=== PATIENT | female | born 1965 | race Caucasian/White ===

== ENCOUNTER → 2017-04-18 | Outpatient (CLI) | payer MEDICARE, BC ==
--- NOTE | 2017-04-18 11:55 | KCIC ---
MR of the left shoulder Indication: Left shoulder pain when exercising, now severe with limited range of motion in last 3 days. Technique: Standard multiplanar sequences are obtained. Findings: Acromioclavicular joint:Intact. Rotator cuff: Deep linear undersurface tear of the anterior supraspinatus tendon measures 15 mm AP diameter. This extends to about 80 percent of the tendon depth at the anterior supraspinatus footprint. No complete through and through bursal surface rupture or retraction. No evidence of subscapularis tendon tear. However, there is extensive intramuscular edema, as well as a complex fluid signal collection within the subscapularis muscle, with some hyperintense T1 signal, most compatible with a hematoma measuring at least 5 cm diameter. Glenohumeral cartilage: No acute defect or advanced DJD. Fluid: No significant joint effusion. Labrum: Tear of the superior labrum. Biceps tendon: Intact Bones: No lesion or acute fracture. Soft tissue: Generalized soft tissue edema at the anterior shoulder. Mild fluid/edema around the teres major muscle. Impression: 1. Small deep undersurface tear of the anterior supraspinatus tendon of the rotator cuff. 2. Intramuscular hematoma of the subscapularis muscle. This most likely is due to a partial intramuscular tear. Hemorrhagic intramuscular mass is difficult to exclude, particularly if there is not a suggestive history of trauma or coagulopathy, and consider MR follow-up to document that this resolves. 3. Superior labral tear. Electronically signed by: Derek Emery MD (04/18/2017 11:51 AM) [facility]
== END | disposition home or self-care (01) ==
LOC: KCIC MRI 08:53
PROVIDERS: ATTEND Physician Assistant Medical
DX: M75.102 Unspecified rotator cuff tear or rupture of left shoulder, not specified as traumatic (principal); M79.81 Nontraumatic hematoma of soft tissue
CPT/HCPCS: 73221

== ENCOUNTER → 2020-08-15 | Outpatient (CLI) | payer MEDICARE, OTHER ==
--- NOTE | 2020-08-16 09:26 | CARD ---
MR#: [id number] Date of Study: 08/15/2020 Ordering Physician: RONALD WEBBER, Referring Physician: RONALD WEBBER, Tech: Amanda Herrera [facility] APPROVED REPORT EXAM: Two-dimensional and M-mode echocardiogram with Doppler and color Doppler. INDICATION RISK FACTORS Hypertension Hyperlipidemia 2D DIMENSIONS RVDd3.4 (2.9-3.5cm)Left Atrium(2D)3.9 (1.6-4.0cm) IVSd1.2 (0.7-1.1cm)Aortic Root(2D)3.0 (2.0-3.7cm) LVDd4.1 (3.9-5.9cm)LVOT Diameter2.0 (1.8-2.4cm) PWd1.2 (0.7-1.1cm)LVDs2.8 (2.5-4.0cm) FS (%) 31.2 %SV44.8 ml LVEF(%)59.5 (>50%) Aortic Valve AoV Peak Sanjay.277.6cm/sAoV VTI63.4cm AO Peak GR.30.8mmHgLVOT Peak Sanjay.93.7cm/s AO Mean GR.15mmHgAVA (VMAX)1.09cm2 AI P 1/2 Hxuz050fg Mitral Valve MV E Rkearney06.6cm/sMV E Peak Gr.28mmHg MV DECEL [id number] A Yhhdoxfy61.8cm/s MV E Mean Gr.13mmHgE/A Ratio1.0 Pulmonary Valve PV Peak Wxugyqoc909.2cm/s Tricuspid Valve TR P. Flswamyt107dt/sTR Peak Gr.25mmHg Pulmonary Vein S1 Xktqdbfl09.6cm/sD2 Rmzjrshq54.3cm/s PVa sfuhwqwq271jevi LEFT VENTRICLE The left ventricle is normal size. There is mild concentric left ventricular hypertrophy. The left ve ntricular systolic function is normal and the ejection fraction is within normal range. Estimated eje ction fraction 60-65%. There is normal LV segmental wall motion. Tissue Doppler imaging reveals mild left ventricular diastolic dysfunction. RIGHT VENTRICLE The right ventricle is normal size. There is normal right ventricular wall thickness. The right ventr icular systolic function is normal. ATRIA The left atrium size is normal. The right atrium size is normal. The interatrial septum is intact wit h no evidence for an atrial septal defect or patent foramen ovale as noted on 2-D or Doppler imaging. AORTIC VALVE There is a mechanical aortic valve prosthesis.The prosthetic aortic valve appears well seated with a Peak pg 28 mmHg with a calculated mean pg 13 mmHg. Mild aortic insufficiency noted. MITRAL VALVE The mitral valve is normal in structure and function. There is no evidence of mitral valve prolapse. Doppler and Color-flow revealed mild mitral regurgitation. TRICUSPID VALVE The tricuspid valve is normal in structure and function. Doppler and Color Flow revealed mild tricusp id regurgitation. Estimated PAP 28 mmHg. There is no tricuspid valve stenosis. PULMONIC VALVE Doppler and Color Flow revealed no pulmonic valvular regurgitation. There is no pulmonic valvular faina nosis. GREAT VESSELS The aortic root is normal in size. The ascending aorta is normal in size. The IVC is normal in size a nd collapses >50% with inspiration. PERICARDIAL EFFUSION There is no evidence of significant pericardial effusion. Critical Notification Critical Value: No <Conclusion> The left ventricular systolic function is normal and the ejection fraction is within normal range. E stimated ejection fraction 60-65%. There is normal LV segmental wall motion. There is a mechanical aortic valve prosthesis.The prosthetic aortic valve appears well seated with a Peak pg 28 mmHg with a calculated mean pg 13 mmHg. Mild aortic insufficiency noted. Doppler and Color Flow revealed mild tricuspid regurgitation. Estimated PAP 28 mmHg. Signed by : Ronald Webber, Electronically Approved : 08/16/2020 09:26:21
== END ==
LOC: ECHO 14:51
PROVIDERS: ATTEND Internal Medicine Cardiovascular Disease
DX: I08.3 Combined rheumatic disorders of mitral, aortic and tricuspid valves (principal); Z95.2 Presence of prosthetic heart valve
CPT/HCPCS: 93306

== ENCOUNTER → 2021-10-30 | Outpatient (CLI) | payer MEDICARE, OTHER ==
--- NOTE | 2021-10-31 09:23 | CARD ---
MR#: [id number] Date of Study: 10/30/2021 Ordering Physician: RONALD WEBBER, Referring Physician: RONALD WEBBER, Tech: Warner Mir [facility] APPROVED REPORT EXAM: Two-dimensional and M-mode echocardiogram with Doppler and color Doppler. Other Information Quality : AverageHR: 64bpm Rhythm : NSRTechnically limited study due to body habitus. INDICATION Cardiac Disease: CAD Surgery/Intervention Status/Post Aortic Valve Replacement: Mechanical 2D DIMENSIONS Left Atrium(2D)3.9 (1.6-4.0cm)IVSd0.9 (0.7-1.1cm) Aortic Root(2D)3.2 (2.0-3.7cm)LVDd4.4 (3.9-5.9cm) LVOT Diameter2.1 (1.8-2.4cm)PWd0.8 (0.7-1.1cm) LA Foslom50 (18-58mL)LVDs2.3 (2.5-4.0cm) FS (%) 47.7 %SV69.7 ml LVEF(%)79.3 (>50%) Aortic Valve AoV Peak Sanjay.213.3cm/sAoV VTI51.8cm AO Peak GR.18.2mmHgLVOT Peak Sanjay.76.4cm/s LVOT VTI 20.64cmAO Mean GR.10mmHg GEMINI (VMAX)1.06du7CBQ (VTI)1.34cm2 Mitral Valve MV E Lcvpqrjk047.1cm/sMV DECEL PDZR494pe MV A Twgchrij48.3cm/sMV E Mean Gr.2mmHg MV GUG31ovV/A Ratio1.4 MVA (PHT)3.44cm2 Pulmonary Valve PV Peak Vcijglyn749.9cm/sPV Peak Grad.4mmHg Tricuspid Valve TR P. Wuxffqad470ql/sTR Peak Gr.22mmHg Pulmonary Vein S1 Dnbrgpbp01.3cm/sD2 Doqjqdgg88.0cm/s LEFT VENTRICLE The left ventricle is normal size. There is normal left ventricular wall thickness. The left ventricu lar systolic function is normal and the ejection fraction is within normal range. EF 55% There is nor mal LV segmental wall motion. Tissue Doppler imaging reveals moderate left ventricular diastolic dysf unction. No left ventricle thrombus noted on this study. There is no ventricular septal defect visual ized. There is no left ventricular aneurysm. There is no mass noted in the left ventricle. RIGHT VENTRICLE The right ventricle is normal size. There is normal right ventricular wall thickness. The right ventr icular systolic function is normal. ATRIA The left atrium is moderately dilated. The right atrium size is normal. The interatrial septum is int act with no evidence for an atrial septal defect or patent foramen ovale as noted on 2-D or Doppler i maging. AORTIC VALVE Doppler and Color Flow revealed trace aortic regurgitation. There is no significant aortic valvular s tenosis. There is a mechanical aortic valve prosthesis. The prosthetic aortic valve appears well seat ed. MITRAL VALVE The mitral valve is thickened but opens well. There is no evidence of mitral valve prolapse. There is no mitral valve stenosis. Doppler and Color-flow revealed trace to mild mitral regurgitation. TRICUSPID VALVE The tricuspid valve is normal in structure and function. Doppler and Color Flow revealed trace to mil d tricuspid regurgitation. The PA pressure was estimated at 34 mmHg. There is no tricuspid valve prol apse or vegetation. There is no tricuspid valve stenosis. PULMONIC VALVE The pulmonary valve is normal in structure and function. Doppler and Color Flow revealed no pulmonic valvular regurgitation. There is no pulmonic valvular stenosis. GREAT VESSELS The aortic root is normal in size. The pulmonary artery is normal. The IVC is normal in size and liss apses >50% with inspiration. PERICARDIAL EFFUSION There is no pleural effusion. There is no evidence of significant pericardial effusion. Critical Notification Critical Value: No <Conclusion> The left ventricular systolic function is normal and the ejection fraction is within normal range. EF 55% There is normal LV segmental wall motion. There is a mechanical aortic valve prosthesis. The prosthetic aortic valve appears well seated. There is no significant aortic valvular stenosis. Signed by : Ronald Webber, Electronically Approved : 10/31/2021 09:23:27
--- NOTE | 2021-10-31 09:35 | RAD ---
MR#: [id number] Date of Study: 10/30/2021 Ordering Physician: RONALD HAGEN, Referring Physician: ILYA PURVIS Tech: RT Soto (Uli) (N) APPROVED REPORT Test Type: Exercise Stress Nurse/Tech: Tri Ahmadi RN Test Indications: CAD Cardiac History: mechanical heart valve, HTN Medications: See Electronic Medical Record Medical History: See Electronic Medical Record Resting ECG: SR Resting Heart Rate: 60 bpm Resting Blood Pressure: 152/88mmHg Pretest Chest Pain: None Nurse/Tech Notes Lungs CTA, S1S2 Consent: The procedure was explained to the patient in lay terms. Informed consent was witnessed. Nikos eout was entered into [employer]. History and Stress Test performed by RT Soto (R) (N) Stress Symptoms Dyspnea POST EXERCISE Reason for Termination: Reached target heart rate Target HR: Yes Max HR: 148 bpm 104% of Maximum Predicted HR: 141 bpm Exercise duration: 5:53 min:sec, 2 Stage Exercise capacity: 7METs Max Blood Pressure: 190/90mmHg Blood Pressure response to exercise: Normal blood pressure response during stress. Heart Rate response to exercise: normal response Chest Pain: No. Arrhythmia: Yes. PVC ST Change: No. INTERPRETATION Stress EKG Conclusion: No evidence of stress induced EKG changes. Imaging Protocol IMAGE PROTOCOL: Rest Tc-99m/stress Tc-99m 1 day Rest: Stress: Viability: Radiopharm.Tc99m WtoiqgzaxWi93z Sestamibi Dose10.2mCi 32mCi Duration 15min. 10min. Img Date 10/30/2021 10/30/2021 Inj-Img Eudp63sid. 60min. Rest Admin Site:IV - Left WristAdministrator:HODAN Rudolph, ARRT (R)(N) Stress Admin Site: IV - Left WristAdministrator: HODAN Rudolph, ARRT (R)(N) STRESS DATA End Diast. Vol.77.0mlAv. Heart Rate78.0bpm End Syst. Vol.10.0mlCO Index BSA5.2L/min Myocardial Folq407.0gEject. Cknmtbmc83.0% Stress Rates Pk. Fill Rate3.13EDV/secLVtime Pk. Fill 165.66msec Pk. Empty Rate3.52ESV/secLVtime Pk. Kctzt942.61msec 1/3 Pk. Fill1.83EDV/sec Stress Scores Regional WT0.00Summed WT0.00 Regional WM0.00Summed WM2.00 The rest and stress images show normal perfusion, normal contraction and thickening. LV Perf. Quant 17 Seg. SSS0.00 17 Seg. SRS0.00 17 Seg. SDS0.00 Stress Defect Extent (% LAD)0.00Rest Defect Extent (% LAD)0.00Rev. Defect Extent (% LAD)0.00 Stress Defect Extent (% LCX) 0.00Rest Defect Extent (% LCX)0.00Rev. Defect Extent (% LCX)0.00 Stress Defect Extent (% RCA)0.00Rest Defect Extent (% RCA)0.00Rev. Defect Extent (% RCA)0.00 Stress Defect Extent (% CORI)0.00Rest Defect Extent (% CORI)0.00Rev. Defect Extent (% CORI)0.00 Other Information Quality:Average Risk Assessment: Low Risk Conclusion 1. No evidence of EKG changes with stress testing. 2. Normal perfusion at stress/rest. 3. Low risk study. 4. EF > 60%. Signed by : Ronald Hagen, Electronically Approved : 10/31/2021 09:35:05
== END ==
LOC: NM 08:20
PROVIDERS: ATTEND Internal Medicine Cardiovascular Disease
DX: I08.1 Rheumatic disorders of both mitral and tricuspid valves (principal); I25.10 Atherosclerotic heart disease of native coronary artery without angina pectoris; Z95.2 Presence of prosthetic heart valve
CPT/HCPCS: 78452; 93017; 93306; A9500; C8929